=== PATIENT | female | born 1960 | race Caucasian/White ===

== ENCOUNTER 2020-03-14 08:46 | Day surgery (SDC) | payer MEDICAID ==
[~2020-03-14] VITALS: Ht 162.6 cm; Wt 56.0 kg
[2020-03-14] MEDS ORDERED: NO HOME MEDS (08:59)
[2020-03-14 09:08] VITALS: BP 112/77
[2020-03-14] MEDS ORDERED: normal saline 1000ml 1,000 ML IV SCH ×2 (09:10→09:47)
[2020-03-14] MEDS ORDERED: heparin sodium, porcine/PF 100unit/ml 5ML syringe ONE (09:48)
[2020-03-14] MEDS ORDERED: fentaNYL/PF 50MCG/1 ML 2ML syringe ONE (09:49)
[2020-03-14] MEDS ORDERED: midazolam 2 mg/2 ml injection ONE (09:49)
[2020-03-14] MEDS ORDERED: LIDOcaine 1%/PF 5ML 10 MG/ML VIAL ONE (09:49)
[2020-03-14 10:52] VITALS: BP 136/60
[2020-03-14 11:00] VITALS: BP 123/78
[2020-03-14 11:15] VITALS: BP 113/65
[2020-03-14 11:30] VITALS: BP 107/63
[2020-03-14 11:40] VITALS: BP 98/66
== END 2020-03-14 11:53 | disposition home or self-care (01) ==
LOC: SSTAY O 08:46
PROVIDERS: ATTEND Radiology Diagnostic Radiology
DX: C34.11 Malignant neoplasm of upper lobe, right bronchus or lung (principal); J44.9 Chronic obstructive pulmonary disease, unspecified; Z79.899 Other long term (current) drug therapy
CPT/HCPCS: 36561; 76937; 77001; 99152; 99153; C1769; C1788; C1894; J1642; J2250; J3010; J7030